=== PATIENT | male | born 1935 | race Caucasian/White ===

== ENCOUNTER → 2018-12-15 | Outpatient (CLI) | payer MEDICARE, BC | LOC: RAD 09:14 | DX: I67.82 Cerebral ischemia (principal); R20.0 Anesthesia of skin ==

== ENCOUNTER → 2019-12-14 | Outpatient (CLI) | payer MEDICARE, BC | LOC: RAD 15:11 | DX: M79.661 Pain in right lower leg (principal); R22.41 Localized swelling, mass and lump, right lower limb ==

== ENCOUNTER 2022-01-09 18:32 | Emergency (ER) | payer MEDICARE, BC ==
[~2022-01-09] VITALS: Wt 104.9 kg
[2022-01-09 19:30] LABS: BASO # 0.02 K/mm3 (0.02-0.10); EOS # 0.26 K/mm3 (0.04-0.40); EOS % 3.7 % (0.0-4.0); HEMATOCRIT 35.4 % (42.0-52.0); LYMPH# 1.46 K/mm3 (1.50-4.00); MEAN CELL VOLUME 94 fl (78-100); MEAN CORPUSCULAR HEMOGLOBIN 32 pg (27-31); MEAN CORPUSCULAR HGB CONC 34 g/dL (33-37); MEAN PLATELET VOLUME 9.3 fl (7.4-10.4); MONO # 1.07 K/mm3 (0.20-0.80); NEU # 4.13 K/mm3 (1.40-6.50); PLATELET COUNT 210 K/mm3 (130-400); RED BLOOD COUNT 3.76 M/mm3 (4.20-5.60); RED CELL DISTRIBUTION WIDTH 13.1 % (11.5-14.5)
[2022-01-09 19:43] LABS: POTASSIUM 3.4 mmol/L (3.5-5.1)
[2022-01-09 19:44] LABS: CALCIUM 8.6 mg/dL (8.3-10.5)
[2022-01-09 19:46] LABS: TOTAL PROTEIN 6.6 g/dL (6.2-8.1)
[2022-01-09 19:47] LABS: TOTAL BILIRUBIN 0.3 mg/dL (0.2-1.2)
[2022-01-09 21:13] LABS: URINE APPEARANCE CLEAR; URINE COLOR YELLOW; URINE GLUCOSE NEGATIVE (NEGATIVE); URINE KETONE 1+ (NEGATIVE); URINE PROTEIN(semi-quant) NEGATIVE (NEGATIVE)
[2022-01-09 21:14] LABS: URINE BILIRUBIN NEGATIVE (NEGATIVE); URINE BLOOD NEGATIVE (NEGATIVE); URINE LEUKOCYTE ESTERASE NEGATIVE (NEGATIVE); URINE NITRATE NEGATIVE (NEGATIVE); URINE UROBILINOGEN NORMAL (NORMAL); URINE WBC 0-1 /hpf (0-3)
[2022-01-09 21:16] LABS: URINE MUCUS PRESENT (NOT PRESENT)
[2022-01-09 22:29] VITALS: BP 155/74
== END 2022-01-09 22:30 | disposition home or self-care (01) ==
LOC: ED 18:32
PROVIDERS: Family Medicine
DX: I95.1 Orthostatic hypotension (principal); D64.9 Anemia, unspecified; E87.6 Hypokalemia; E87.1 Hypo-osmolality and hyponatremia; E86.9 Volume depletion, unspecified
CPT/HCPCS: J7030

== ENCOUNTER → 2024-01-24 | Outpatient (CLI) | payer MEDICARE, BC | LOC: RAD 14:53 | DX: I10 Essential (primary) hypertension (principal) ==

== ENCOUNTER 2024-03-13 18:59 | Emergency (ER) | payer MEDICARE, BC ==
[~2024-03-13] VITALS: Ht 172.7 cm; Wt 100.9 kg
[2024-03-13] MEDS ORDERED: predniSONE 20 MG TAB PO ONE (19:30)
[2024-03-13] MEDS ORDERED: Albuterol/Ipratropium 3 MG-0.5 MG/3 ML Neb Soln IH ONE (19:30)
[2024-03-13 19:41] LABS: BASO # 0.01 K/mm3 (0.02-0.10); EOS # 0.24 K/mm3 (0.04-0.40); EOS % 4.7 % (0.0-4.0); HEMATOCRIT 33.9 % (42.0-52.0); HEMOGLOBIN 11.5 g/dL (13.5-18.0); LYMPH# 1.48 K/mm3 (1.50-4.00); MEAN CELL VOLUME 95 fl (78-100); MEAN CORPUSCULAR HEMOGLOBIN 32 pg (27-31); MEAN CORPUSCULAR HGB CONC 34 g/dL (33-37); MEAN PLATELET VOLUME 8.7 fl (7.4-10.4); MONO # 0.68 K/mm3 (0.20-0.80); NEU # 2.66 K/mm3 (1.40-6.50); PLATELET COUNT 159 K/mm3 (130-400); RED BLOOD COUNT 3.58 M/mm3 (4.20-5.60); WHITE BLOOD COUNT 5.1 K/mm3 (4.8-10.8)
[2024-03-13 19:48] LABS: ALBUMIN 3.8 g/dL (3.4-4.8)
[2024-03-13 19:49] LABS: SODIUM 129 mmol/L (136-145)
[2024-03-13 19:50] LABS: CALCIUM 9.1 mg/dL (8.3-10.5)
[2024-03-13 19:51] LABS: GLUCOSE 132 mg/dL (75-110); TOTAL PROTEIN 7.2 g/dL (6.2-8.1)
[2024-03-13 19:52] LABS: CARBON DIOXIDE 21 mmol/L (23-31)
[2024-03-13 19:53] LABS: TOTAL BILIRUBIN 0.4 mg/dL (0.2-1.2)
[2024-03-13 19:56] LABS: AST-SGOT 27 U/L (5-34)
[2024-03-13 19:58] LABS: ALT/SGPT 27 U/L (0-55)
[2024-03-13 20:05] LABS: TROPONIN-I < 0.030 ng/mL (0.00-0.033)
[2024-03-13] MEDS ORDERED: Iohexol 350 - 100 ML VIAL IV ONE (20:23)
[2024-03-13] MEDS ORDERED: Lidocaine 4% Topical Patch TP ONE (20:30)
[2024-03-13] MEDS ORDERED: VIBRAMYCIN HYC100 MG PO (21:10)
[2024-03-13] MEDS ORDERED: IPRATROPIUM BROM3 M1 IH (21:10)
[2024-03-13] MEDS ORDERED: NEB (21:10)
[2024-03-13] MEDS ORDERED: LIDODERM1 EACH TP (21:10)
[2024-03-13] MEDS ORDERED: PREDNISONE20 M1 PO (21:10)
[2024-03-13 21:28] VITALS: BP 148/71
== END 2024-03-13 21:28 | disposition home or self-care (01) ==
LOC: ED 18:59
PROVIDERS: Physician Assistant
DX: S22.42XA Multiple fractures of ribs, left side, initial encounter for closed fracture (principal); M89.9 Disorder of bone, unspecified; R79.89 Other specified abnormal findings of blood chemistry; X58.XXXA Exposure to other specified factors, initial encounter
CPT/HCPCS: J7512; Q9967